=== PATIENT | female | born 1970 | race Caucasian/White ===

== ENCOUNTER 2016-04-29 18:27 | Observation (INO) | payer OTHER ==
[~2016-04-29] VITALS: Ht 165.1 cm; Wt 129.0 kg
[~2016-04-29 18:27] MED LIST: ASPIR-LOW81 MG PO; BENICAR20 MG PO; BENTYL10 MG PO; BENTYL20 MG PO; CARAFATE1 GM PO; CEFTIN500 MG PO; CIPRO500 MG PO; CLONIDINE HCL0.3 MG PO; Desyrel PO; GEODON20 MG PO; GEODON80 MG PO; Geodon PO; LEVAQUIN500 MG PO; LISINOPRIL-HCT1 EACH PO; MEGACE40 MG PO; METFORMIN HCL1000 MG PO; MULTIVITAMIN1 EAC2 PO; NEXIUM20 MG PO; PANTOPRAZOLE SO40 MG PO; PERCOCET 5/31 TABLET PO; PRAVASTATIN SOD10 MG PO; TRAZODONE HCL50 MG PO; Theragran PO; ULTRAM50 MG PO; UNISOM SLEEP AI25 MG PO; WOMEN'S DAILY1 EAC1 PO; ZANTAC150 MG PO; ZOFRAN4 MG PO; ZOLOFT100 MG PO; ZOLOFT50 MG PO; Zoloft PO
[2016-04-29 19:09] LABS: EOSINOPHIL (%) 3.6 % (0-5); EOSINOPHIL COUNT 0.5 K/uL (0-0.3); HEMATOCRIT 37.6 % (36.0-46.0); IMMATURE GRANULOCYTE (%) 0.3 % (0.0-0.7); IMMATURE GRANULOCYTE COUNT 0.4 K/uL; LYMPHOCYTE COUNT 2.7 K/uL (1.0-2.8); MCH 26.1 PG (29.0-34.0); MCHC 31.6 G/DL (30.0-36.0); MCV 82.5 FL (83-99); MEAN PLAT.VOLUME 11.4 uM^3 (9.5-12.4); MONOCYTE (%) 5.5 % (3-12); MONOCYTE COUNT 0.7 K/uL (0-0.8); NEUTROPHIL (%) 69.2 % (45-76); NEUTROPHIL COUNT 8.7 K/uL (1.8-6.4); PLATELET COUNT 277 K/uL (156-360); RBC DIS.WIDTH-CV 14.1 % (11.8-14.6); RBC DIS.WIDTH-SD 41.7 % (39-53); RED BLOOD COUNT 4.56 M/uL (3.80-5.20); WHITE BLOOD COUNT 12.5 K/uL (4.1-10.2)
[2016-04-29 19:19] LABS: CHLORIDE 98 mEq/L (99-109); POTASSIUM 3.2 mEq/L (3.7-5.4); SODIUM 140 mEq/L (136-147)
[2016-04-29 19:20] LABS: D-DIMER ELISA 0.28 mg/L FEU (< 0.57)
[2016-04-29 19:21] LABS: GLUCOSE 117 mg/dL (70-99)
[2016-04-29 19:22] LABS: ANION GAP 13 MEQ/L (2-14)
[2016-04-29 19:23] LABS: TOTAL BILIRUBIN 0.3 mg/dL (0.0-1.0)
[2016-04-29 19:25] LABS: ALKALINE PHOSPHATASE 112 IU/L (3-129); GFR ESTIMATE (CALCULATED) > 59 mL/min/
[2016-04-29 19:26] LABS: UREA NITROGEN (BUN) 8 mg/dL (9-23)
[2016-04-29 19:27] LABS: TROP-I INTERPRETATION NEGATIVE; TROPONIN-I < 0.01 ng/mL (0.0-0.30)
[2016-04-29 19:28] LABS: QUANTITATIVE HCG < 4.0 MIU/ML
[2016-04-29 21:29] LABS: TROP-I INTERPRETATION NEGATIVE; TROPONIN-I 0.01 ng/mL (0.0-0.30)
[2016-04-29] MEDS ORDERED: PRINZIDE 20-121 EACH PO (22:17)
[2016-04-29] MEDS ORDERED: AMBIEN10 MG PO (22:18)
[2016-04-29] MEDS ORDERED: NEXIUM20 MG PO (22:18)
[2016-04-29 23:26] LABS: INFLUENZA A VIRAL ANTIGEN NEGATIVE; INFLUENZA B VIRAL ANTIGEN NEGATIVE
[2016-04-30 04:10] VITALS: BP 108/63
[2016-04-30 06:14] LABS: ANION GAP 11 MEQ/L (2-14); CHLORIDE 98 MEQ/L (99-109); POTASSIUM 3.1 MEQ/L (3.7-5.4); SAMPLE HEMOLYSIS CHECK 0; SAMPLE ICTERIC CHECK 0; SAMPLE LIPEMIA CHECK 0; SODIUM 138 MEQ/L (136-147); TOTAL BILIRUBIN 0.3 MG/DL (0.0-1.0)
[2016-04-30 06:19] LABS: ALKALINE PHOSPHATASE 84 IU/L (3-129); GFR ESTIMATE (CALCULATED) > 59 mL/min/; GLUCOSE 142 mg/dL (70-99); UREA NITROGEN (BUN) 13 mg/dL (9-23)
[2016-04-30 06:24] LABS: TROP-I INTERPRETATION NEGATIVE; TROPONIN-I < 0.01 ng/mL (0.0-0.30)
[2016-04-30 06:28] LABS: HEMATOCRIT 34.1 % (36.0-46.0); MCH 25.7 PG (29.0-34.0); MCHC 30.8 G/DL (30.0-36.0); MCV 83.6 FL (83-99); MEAN PLAT.VOLUME 11.5 uM^3 (9.5-12.4); PLATELET COUNT 220 K/uL (156-360); RBC DIS.WIDTH-CV 14.5 % (11.8-14.6); RED BLOOD COUNT 4.08 M/uL (3.80-5.20); WHITE BLOOD COUNT 9.1 K/uL (4.1-10.2)
[2016-04-30 08:27] VITALS: BP 128/67
[2016-04-30 08:36] LABS: POINT-OF-CARE METER ID UU13113807
[2016-04-30] MEDS ORDERED: ASPIR-LOW81 MG PO (11:56)
[2016-04-30] MEDS ORDERED: IBUPROFEN600 MG PO (12:00)
[2016-04-30 12:15] VITALS: BP 125/65
== END 2016-04-30 12:54 | disposition home or self-care (01) ==
LOC: EME 18:27 → 4SOUTH 21:59 → EDOF 21:59 → 4SOUTH 04-30 04:01
PROVIDERS: Emergency Medicine; Internal Medicine
DX: R07.9 Chest pain, unspecified (principal); M79.601 Pain in right arm; E87.6 Hypokalemia; K21.9 Gastro-esophageal reflux disease without esophagitis; E11.43 Type 2 diabetes mellitus with diabetic autonomic (poly)neuropathy; F32.9 Major depressive disorder, single episode, unspecified; F41.9 Anxiety disorder, unspecified; E66.01 Morbid (severe) obesity due to excess calories; Z68.42 Body mass index [BMI] 45.0-49.9, adult; I10 Essential (primary) hypertension; E78.5 Hyperlipidemia, unspecified; Z79.84 Long term (current) use of oral hypoglycemic drugs; Z79.82 Long term (current) use of aspirin; Z82.49 Family history of ischemic heart disease and other diseases of the circulatory system; Z82.61 Family history of arthritis; Z88.5 Allergy status to narcotic agent
CPT/HCPCS: 71020; 71275; 80053; 82948; 84484; 84702; 85025; 85027; 85379; 87502; 93005; 99281; 99285; G0378; J1644; J1815; J1885; J3010; J3480; J7030

== ENCOUNTER → 2016-05-11 | Outpatient (CLI) | payer OTHER ==
[~2016-05-11] MED LIST changes: +AMBIEN10 MG PO; +IBUPROFEN600 MG PO; +PRINZIDE 20-121 EACH PO
== END | disposition home or self-care (01) ==
LOC: NUC 10:37
DX: M79.604 Pain in right leg (principal); M79.605 Pain in left leg; C16.9 Malignant neoplasm of stomach, unspecified; G62.9 Polyneuropathy, unspecified
CPT/HCPCS: 78315; A9503

== ENCOUNTER 2016-06-28 19:51 | Emergency (ER) | payer OTHER ==
[~2016-06-28] VITALS: Ht 165.1 cm; Wt 127.7 kg
[2016-06-28 20:21] LABS: HEMATOCRIT 37.6 % (36.0-46.0); MCH 25.9 PG (29.0-34.0); MCHC 31.9 G/DL (30.0-36.0); MCV 81.2 FL (83-99); PLATELET COUNT 302 K/uL (156-360); RBC DIS.WIDTH-CV 14.3 % (11.8-14.6); RBC DIS.WIDTH-SD 41.8 % (39-53); RED BLOOD COUNT 4.63 M/uL (3.80-5.20); WHITE BLOOD COUNT 13.5 K/uL (4.1-10.2)
[2016-06-28 20:31] LABS: CHLORIDE 99 mEq/L (99-109); POTASSIUM 3.3 mEq/L (3.7-5.4); SODIUM 140 mEq/L (136-147)
[2016-06-28 20:33] LABS: GLUCOSE 109 mg/dL (70-99)
[2016-06-28 20:34] LABS: ANION GAP 14 MEQ/L (2-14)
[2016-06-28 20:35] LABS: TOTAL BILIRUBIN 0.3 mg/dL (0.0-1.0)
[2016-06-28 20:36] LABS: ALKALINE PHOSPHATASE 102 IU/L (3-129)
[2016-06-28 20:37] LABS: GFR ESTIMATE (CALCULATED) > 59 mL/min/
[2016-06-28 20:38] LABS: UREA NITROGEN (BUN) 11 mg/dL (9-23)
[2016-06-28 20:45] LABS: QUANTITATIVE HCG < 4.0 MIU/ML
[2016-06-28 20:49] LABS: ADD MIUA? YES; BILIRUBIN NEGATIVE; BLOOD SMALL; COLOR YELLOW ((YELLOW)); GLUCOSE (STRIP) NEGATIVE; KETONES NEGATIVE; LEUKOCYTES NEGATIVE; NITRITE NEGATIVE; PROTEIN (STRIP) NEGATIVE; SPECIFIC GRAVITY 1.024 (1.000-1.030); UROBILINOGEN 0.2 MG/DL (0.2-1.0)
[2016-06-28 20:59] LABS: BACTERIA RARE /HPF; EPITHELIAL CELLS RARE /HPF; MUCUS TRACE /LPF; RED BLOOD CELLS 0-5 /HPF (0-5); UCUL ADDED? NO; WHITE BLOOD CELLS 0-5 /HPF (0-5)
[2016-06-28] MEDS ORDERED: ZOFRAN ODT4 MG PO (22:44)
[2016-06-28] MEDS ORDERED: PERCOCET 5/31 TABLET PO (22:44)
[2016-06-28 23:14] VITALS: BP 124/75
== END 2016-06-28 23:14 | disposition home or self-care (01) ==
LOC: EME 19:51 → EXP 19:51
DX: R10.9 Unspecified abdominal pain (principal); R31.9 Hematuria, unspecified; M79.7 Fibromyalgia; E78.5 Hyperlipidemia, unspecified; K21.9 Gastro-esophageal reflux disease without esophagitis; G47.30 Sleep apnea, unspecified; Z87.440 Personal history of urinary (tract) infections; Z87.891 Personal history of nicotine dependence
CPT/HCPCS: 74177; 80053; 81003; 84702; 85027; 99281; 99284; J2405; J3010; J7030

== ENCOUNTER 2016-08-29 12:15 | Emergency (ER) | payer SELFPAY ==
[~2016-08-29] VITALS: Ht 165.1 cm; Wt 122.1 kg
[~2016-08-29 12:15] MED LIST changes: +ZOFRAN ODT4 MG PO
[2016-08-29 13:22] LABS: HEMATOCRIT 39.4 % (36.0-46.0); MCH 26.4 PG (29.0-34.0); MCV 82.4 FL (83-99); MEAN PLAT.VOLUME 11.1 uM^3 (9.5-12.4); PLATELET COUNT 322 K/uL (156-360); RBC DIS.WIDTH-SD 41.7 % (39-53); RED BLOOD COUNT 4.78 M/uL (3.80-5.20); WHITE BLOOD COUNT 15.7 K/uL (4.1-10.2)
[2016-08-29 13:47] LABS: CHLORIDE 94 mEq/L (99-109); POTASSIUM 2.7 mEq/L (3.7-5.4); SODIUM 139 mEq/L (136-147)
[2016-08-29 13:49] LABS: GLUCOSE 146 mg/dL (70-99)
[2016-08-29 13:50] LABS: ANION GAP 15 MEQ/L (2-14)
[2016-08-29 13:51] LABS: TOTAL BILIRUBIN 0.5 mg/dL (0.0-1.0)
[2016-08-29 13:52] LABS: ALKALINE PHOSPHATASE 104 IU/L (3-129)
[2016-08-29 13:53] LABS: GFR ESTIMATE (CALCULATED) > 59 mL/min/
[2016-08-29 13:54] LABS: UREA NITROGEN (BUN) 11 mg/dL (9-23)
[2016-08-29 14:01] LABS: QUANTITATIVE HCG < 4.0 MIU/ML
[2016-08-29 14:50] LABS: LIPASE 32 U/L (1.0-51.0)
[2016-08-29 15:28] LABS: AMYLASE 20 IU/L (1-118)
[2016-08-29 15:45] LABS: TROP-I INTERPRETATION NEGATIVE; TROPONIN-I < 0.01 ng/mL (0.0-0.30)
[2016-08-29 16:54] LABS: ADD MIUA? YES; BILIRUBIN NEGATIVE; BLOOD NEGATIVE; COLOR AMBER ((YELLOW)); GLUCOSE (STRIP) NEGATIVE; KETONES 5; LEUKOCYTES LARGE; NITRITE NEGATIVE; PROTEIN (STRIP) 100; SPECIFIC GRAVITY 1.021 (1.000-1.030); UROBILINOGEN 0.2 MG/DL (0.2-1.0)
[2016-08-29 17:29] LABS: BACTERIA 1+ /HPF; EPITHELIAL CELLS 1+ /HPF; MUCUS 1+ /LPF; RED BLOOD CELLS 0-5 /HPF (0-5); UCUL ADDED? NO; WHITE BLOOD CELLS 15-20 /HPF (0-5)
[2016-08-29] MEDS ORDERED: PERCOCET 5/31 TABLET PO (18:38)
[2016-08-29] MEDS ORDERED: CIPRO500 MG PO (18:38)
[2016-08-29] MEDS ORDERED: PHENERGAN25 MG PR (18:38)
[2016-08-29 18:53] VITALS: BP 126/87
== END 2016-08-29 18:54 | disposition home or self-care (01) ==
LOC: EXP 12:15 → EME 12:15 → EXP 18:54
DX: N39.0 Urinary tract infection, site not specified (principal); R11.2 Nausea with vomiting, unspecified; R19.7 Diarrhea, unspecified; E87.6 Hypokalemia; E11.9 Type 2 diabetes mellitus without complications; E78.5 Hyperlipidemia, unspecified; Z79.84 Long term (current) use of oral hypoglycemic drugs; K21.9 Gastro-esophageal reflux disease without esophagitis; Z88.6 Allergy status to analgesic agent; Z87.891 Personal history of nicotine dependence
CPT/HCPCS: 74177; 80053; 81003; 82150; 83690; 83735; 84132 91; 84484; 84702; 85027; 87077; 87086; 87186; 93005; 99281; 99285; J0696; J2405; J2765; J3010; J3480; J7050

== ENCOUNTER 2017-06-13 19:22 | Emergency (ER) | payer BC ==
[~2017-06-13] VITALS: Ht 165.1 cm; Wt 136.1 kg
[~2017-06-13 19:22] MED LIST changes: +PHENERGAN25 MG PR
[2017-06-13 19:40] LABS: HEMATOCRIT 38.6 % (36.0-46.0); HEMOGLOBIN 12.3 G/DL (11.9-15.5); MCH 26.1 PG (29.0-34.0); MCHC 31.9 G/DL (30.0-36.0); PLATELET COUNT 281 K/uL (156-360); RBC DIS.WIDTH-SD 45.1 % (39-53); RED BLOOD COUNT 4.71 M/uL (3.80-5.20); WHITE BLOOD COUNT 14.5 K/uL (4.1-10.2)
[2017-06-13 19:49] LABS: ALBUMIN 4.3 g/dL (3.2-4.8)
[2017-06-13 19:50] LABS: CHLORIDE 100 mEq/L (99-109); POTASSIUM 3.9 mEq/L (3.7-5.4); SODIUM 141 mEq/L (136-147)
[2017-06-13 19:52] LABS: GLUCOSE 120 mg/dL (70-99); TOTAL PROTEIN 7.9 g/dL (6.4-8.3)
[2017-06-13 19:54] LABS: TOTAL BILIRUBIN 0.2 mg/dL (0.0-1.0)
[2017-06-13 19:55] LABS: ALKALINE PHOSPHATASE 140 IU/L (3-129)
[2017-06-13 19:56] LABS: CREATININE 0.8 mg/dL (0.6-1.3); GFR ESTIMATE (CALCULATED) > 59 mL/min/
[2017-06-13 19:57] LABS: AST (GOT) 18 IU/L (2-34); UREA NITROGEN (BUN) 11 mg/dL (9-23)
[2017-06-13 19:59] LABS: ALT (GPT) 19 IU/L (3-49)
[2017-06-13 20:00] LABS: QUANTITATIVE HCG < 4.0 MIU/ML
[2017-06-13 21:48] LABS: BILIRUBIN NEGATIVE; BLOOD NEGATIVE; COLOR YELLOW ((YELLOW)); GLUCOSE (STRIP) NEGATIVE; KETONES NEGATIVE; LEUKOCYTES NEGATIVE; NITRITE NEGATIVE; PROTEIN (STRIP) 30; SPECIFIC GRAVITY 1.023 (1.000-1.030); UROBILINOGEN 0.2 MG/DL (0.2-1.0)
[2017-06-13 21:49] LABS: APPEARANCE CLEAR ((CLEAR)); UCUL ADDED? NO
[2017-06-13] MEDS ORDERED: ZOFRAN4 MG PO (22:10)
[2017-06-13 22:20] VITALS: BP 179/96
== END 2017-06-13 22:21 | disposition home or self-care (01) ==
LOC: EME 19:22
DX: R11.2 Nausea with vomiting, unspecified (principal); R19.7 Diarrhea, unspecified; R10.9 Unspecified abdominal pain; K31.84 Gastroparesis; K21.9 Gastro-esophageal reflux disease without esophagitis; M79.7 Fibromyalgia; G47.30 Sleep apnea, unspecified; F41.9 Anxiety disorder, unspecified; E78.5 Hyperlipidemia, unspecified; Z87.891 Personal history of nicotine dependence; Z90.49 Acquired absence of other specified parts of digestive tract; Z87.440 Personal history of urinary (tract) infections; Z86.73 Personal history of transient ischemic attack (TIA), and cerebral infarction without residual deficits; Z88.5 Allergy status to narcotic agent; Z88.1 Allergy status to other antibiotic agents
CPT/HCPCS: 80053; 81003; 84702; 85027; 99281; 99284; J1885; J2405; J7030